=== PATIENT | female | born 1980 | race Caucasian/White ===

== ENCOUNTER 2020-07-08 08:33 | Outpatient (CLI) | payer OTHER, SELFPAY ==
--- NOTE | ~2020-07-08 | MM_ITS ---
EXAMINATION: MM screening rosemary BI w maira HISTORY: Screening mammogram TECHNIQUE: Craniocaudal and mediolateral oblique 3-D tomosynthesis images were obtained and synthetic 2-D images were generated. CAD analysis was submitted and interpreted. COMPARISON: No prior mammogram is available for comparison at this institution. BREAST PARENCHYMAL COMPOSITION: There are scattered areas of fibroglandular density. FINDINGS: Scattered occasional benign calcifications. There is no evidence of suspicious mass, calcif ication, or architectural distortion to suggest malignancy in either breast. There has been no suspic ious interval change. IMPRESSION: 1. No mammographic evidence of malignancy. 2. Recommend routine screening mammography in one year. BI-RADS Category 2: Benign finding(s). Reviewed, dictated and finalized at location A. O/VISUAL MANAGER
== END 2020-07-08 08:34 | disposition home or self-care (01) ==
LOC: ANHIMG 08:36
PROVIDERS: PCP Internal Medicine; Visit Provider Obstetrics & Gynecology
DX: Z12.31 Encounter for screening mammogram for malignant neoplasm of breast (principal)
CPT/HCPCS: 77063; 77067

== ENCOUNTER 2020-11-26 13:42 | Outpatient (CLI) | payer OTHER, SELFPAY ==
--- NOTE | ~2020-11-26 | MM_ITS ---
EXAMINATION: MM diagnostic rosemary BI w maira HISTORY: Right breast pain TECHNIQUE: ML, MLO and craniocaudal 3-D tomosynthesis images of both breasts were performed and synth etic 2-D images were generated. CAD analysis was submitted and interpreted. COMPARISON: 07/08/2020 bilateral digital screening mammogram BREAST PARENCHYMAL COMPOSITION: There are scattered areas of fibroglandular density. FINDINGS: No suspicious mass or architectural distortion, malignant calcification, skin thickening or retraction or significant new or developing density is detected. IMPRESSION: 1. No mammographic evidence of malignancy 2. Routine mammographic screening is recommended BI-RADS Category 1: Negative Reviewed, dictated and finalized at location A.
== END 2020-11-26 13:43 | disposition home or self-care (01) ==
LOC: ANHIMG 13:44
PROVIDERS: PCP Internal Medicine; Visit Provider Obstetrics & Gynecology
DX: N60.19 Diffuse cystic mastopathy of unspecified breast (principal)
CPT/HCPCS: 77062; 77066; G0279

== ENCOUNTER 2022-06-29 08:50 | Outpatient (CLI) | payer OTHER, SELFPAY ==
--- NOTE | ~2022-06-29 | MM_ITS ---
EXAMINATION: MM screening rosemary BI w maira HISTORY: Screening mammogram TECHNIQUE: Craniocaudal and mediolateral oblique 3-D tomosynthesis images were obtained and synthetic 2-D images were generated. CAD analysis was submitted and interpreted. COMPARISON: 11/26/2020 bilateral diagnostic mammogram 07/08/2020 bilateral screening mammogram BREAST PARENCHYMAL COMPOSITION: There are scattered areas of fibroglandular density. FINDINGS: There is no evidence of suspicious mass, calcification, or architectural distortion to sugg est malignancy in either breast. There has been no suspicious interval change. IMPRESSION: 1. No mammographic evidence of malignancy. 2. Recommend routine screening mammography in one year. BI-RADS Category 1: Negative Reviewed, dictated and finalized at location A. ITION ASSEMBLY MACHINE OPERATOR
== END 2022-06-29 08:51 | disposition home or self-care (01) ==
LOC: ANHIMG 08:53
PROVIDERS: PCP Internal Medicine; Visit Provider Internal Medicine
DX: Z12.31 Encounter for screening mammogram for malignant neoplasm of breast (principal)
CPT/HCPCS: 77063; 77067

== ENCOUNTER 2023-06-26 09:02 | Emergency (ER) | payer BC, SELFPAY ==
[2023-06-26 09:22] VITALS: BP 129/83; PULSE 80; RESP 16; TEMP 36.8; O2SAT 99
--- NOTE | 2023-06-26 09:34 | ED.FEMALEGU ---
HPI - Female Genitourinary General Chief complaint: Urogenital-Female Stated complaint: UTI Time Seen by Provider: 06/26/23 09:34 Source: patient Mode of arrival: ambulatory Limitations: no limitations History of Present Illness HPI Narrative: 42-year-old female presents with complaint of urinary frequency, urgency, dysuria for 3 days. Afebrile. Denies abdominal and back pain. Denies nausea vomiting. Not taking any uket-iom-ihaoryr medications to treat symptoms. All systems reviewed and negative except as noted above. Related Data Allergies Allergy/AdvReac Type Severity Reaction Status Date / Time acetaminophen [From Percocet] Allergy Intermediate Itching Verified 06/26/23 09:30 oxycodone [From Percocet] Allergy Intermediate Itching Verified 06/26/23 09:30 Review of Systems Review of Systems: CONSTITUTIONAL: Denies fever, chills, or sweats. EYES: Denies visual changes, redness, or discharge. ENT: Denies rhinorrhea, congestion, sore throat, or otalgia. CARDIOVASCULAR: Denies chest pain, palpitations, or edema. RESPIRATORY: Denies cough or dyspnea. GASTROINTESTINAL: Denies abdominal pain, nausea, vomiting, or diarrhea. GENITOURINARY: Reports dysuria, frequency. Denies hematuria. SKIN: Denies rash or itching. MUSCULOSKELETAL: Denies back pain, joint pain, or myalgia. NEUROLOGIC: Denies headache, numbness, or weakness. PSYCHIATRIC: Denies anxiety or depression. All other systems reviewed are negative, except as documented in HPI. PMFSH Comments At time of signature, agree with nursing past medical, surgical, social and family history. There is no relevant family history pertinent to the presenting complaint. Exam Narrative: GENERAL: This is a well-nourished, well-developed patient, in no apparent distress. HEAD: normocephalic, atraumatic. EYES: PERRL. Sclera clear/white. Vision is grossly intact. EARS: External ears normal NOSE: External nose normal NECK: Neck supple, non-tender without lymphadenopathy, masses or thyromegaly. CARDIOVASCULAR: Regular rate and rhythm without murmurs, gallops, or rubs. RESPIRATORY: Clear to auscultation. Breath sounds equal bilaterally. No wheezes, rales, or rhonchi. SKIN: warm, Dry, intact with no suspicious lesions or rash, good texture and turgor. NEURO: awake, alert, and oriented to person, place and time. There were no obvious focal neurologic abnormalities. EXTREMITIES: No joint tenderness, effusion, or edema noted. Course Course Level of Care: Express Care Visit Vital Signs Vital signs: Vital Signs Temperature 36.8 C 06/26/23 09:22 Pulse Rate 80 06/26/23 09:22 Respiratory Rate 16 06/26/23 09:22 Blood Pressure 129/83 06/26/23 09:22 Pulse Oximetry 99 06/26/23 09:22 Oxygen Delivery Room Air 06/26/23 09:22 Temperature 36.8 C 06/26/23 09:22 Pulse Rate 80 06/26/23 09:22 Respiratory Rate 16 06/26/23 09:22 Blood Pressure 129/83 06/26/23 09:22 Pulse Oximetry 99 06/26/23 09:22 Oxygen Delivery Room Air 06/26/23 09:22 reviewed MDM - Female Genitourinary MDM Narrative Medical decision making narrative: Patient is aware of diagnosis, understands and agrees to treatment plan. Anticipatory guidance given. Patient agrees to follow-up as directed and is aware of reasons to seek care at the emergency department. Portions of this record may have been created with voice recognition software Differential Diagnosis Differential diagnosis: Likely urinary tract infection Lab Data Labs: Urine Glucose Negative Reference Range: Negative Urine Bilirubin Negative Reference Range: Negative Urine Ketone Negative Reference Range: Negative Urine Specific Peculiar 1.030 Referenc
== END 2023-06-26 09:52 | disposition home or self-care (01) ==
PROVIDERS: Emergency Provider Nurse Practitioner Family; PCP Internal Medicine
DX: N39.0 Urinary tract infection, site not specified (principal); B96.20 Unspecified Escherichia coli [E. coli] as the cause of diseases classified elsewhere
CPT/HCPCS: 81003; 87077; 87086; 87186; 99213; G0463

== ENCOUNTER 2024-07-06 13:37 | Emergency (ER) | payer BC, SELFPAY ==
[2024-07-06 13:51] VITALS: BP 114/72; PULSE 99; RESP 16; TEMP 36.7; O2SAT 99
--- NOTE | 2024-07-06 14:16 | ED.GENADULT ---
HPI - General Adult General Chief complaint: Upper Respiratory Infection Stated complaint: work note,fever,cough,diarrhea Time Seen by Provider: 07/06/24 14:12 Source: patient, RN notes reviewed and old records reviewed Mode of arrival: ambulatory Limitations: no limitations History of Present Illness HPI narrative: 43 year old female presents to [facility] care with complaints of 2 day history of nasal congestion and drainage. cough productive of thick yellow mucous, fevers up to 102F, body aches, headaches and fatigue. Patient also reports some stomach cramping with some nausea and episodes of diarrhea. Patient reports that she has been taking Tylenol for her symptoms. MD complaint: sinus congestion,drainage, cough,fevers,headache body aches and diarrhea Onset (ago): day(s) (2) Severity: moderate Treatments prior to arrival: other (Tylenol) Related Data Home Medications ?Medication ?Instructions ?Recorded ?Confirmed ?Last Taken ?Type No Home Medications 07/06/24 07/06/24 Unknown History Allergies Allergy/AdvReac Type Severity Reaction Status Date / Time acetaminophen (From Percocet) Allergy Intermediate Itching Verified 07/06/24 13:46 oxycodone (From Percocet) Allergy Intermediate Itching Verified 07/06/24 13:46 Review of Systems Review of Systems: CONSTITUTIONAL: reports malaise, chills, sweats, or fever. EYES: Denies visual changes, redness, or discharge. ENT: Reports rhinorrhea, congestion, sinus pain, no otalgia and no sore throat. CARDIOVASCULAR: Denies chest pain, palpitations, or edema. RESPIRATORY: Reports cough.? Denies dyspnea. GASTROINTESTINAL: Denies abdominal pain, +nausea, no vomiting, +diarrhea SKIN: Denies rash or itching. MUSCULOSKELETAL:Positive for myalgia. NEUROLOGIC: Positive headache. All systems reviewed & are unremarkable except as noted in HPI and below PMFSH Past Medical History Medical History Urinary tract infection Asthma Surgical History Surgical History History of tonsillectomy Previous section total x8 Social History Social History Smoking status: Current every day smoker Tobacco type: e-cigarettes/vaping Additional smoking assessment comments: former tobacco use now vapes since 2022 Alcohol intake: current Alcohol use details: social Substance use type: does not use Living arrangements: with family Gender identity (if verbalized by the patient): Female Comments At time of signature, agree with nursing past medical, surgical, social and family history. There is no relevant family history pertinent to the presenting complaint Exam Narrative: GENERAL: Ill-appearing, well-nourished, and in no acute distress. HEAD: Normocephalic EYES: PERRLA, conjunctivae clear ENT: Nares clear, turbinates edematous and erythematous, clear discharge. Mucous membranes moist. TM pearly dugan with dull light reflex bilaterally; no tragal tenderness. Oropharynx erythematous without lesions. Tonsils not present and throat without exudate, no drooling, no hoarseness, no trismus, uvula midline.post nasal drainage NECK: Supple. No lymphadenopathy CHEST: Clear to auscultation, breath sounds equal. No wheezing, rhonchi, rales, or stridor. No respiratory distress, speaks in full sentences.productive cough yellowish mucous, SAO2 99% on room air HEART: Regular rate and rhythm. No murmur heard. SKIN: Warm, dry, no rash. NEURO: Alert and oriented x3. PSYCH: Normal mood and affect Course Course Emergency Course: Patient is aware of diagnosis, understands and agrees to treatment plan.? Anticipatory guidance given.? Patient agrees to follow-up as directed and is aware of reasons to seek care at the emergency department. Portions of this record may have been created with voice recognition software Level of Care: Express Care Visit Vital Signs Vital signs: Vital Signs Temperature 36.7 C 07/06/24 13:51 Pulse Rate 99 07/06/24 13:51 Respiratory Rate 16 07/06/24 13:51 Blood Pressure 114/72 07/06/24 13:51 Pulse Oximetry 99 07/06/24 13:51 Oxygen Delivery Room Air 07/06/24 13:51 Temperature 36.7 C 07/06/24 13:51 Pulse Rate 99 07/06/24 13:51 Respiratory Rate 16 07/06/24 13:51 Blood Pressure 114/72 07/06/24 13:51 Pulse Oximetry 99 07/06/24 13:51 Oxygen Delivery Room Air 07/06/24 13:51 Reviewed Medical Decision Making Differential Diagnosis Differential Diagnosis: URI, rhinitis, cough, influenza, COVID, diarrhea, flu like symptoms. Medical Records Medical records reviewed: Yes I reviewed the external patient's medical records. Vital Signs Vital Signs: Vital Signs Temperature 36.7 C 07/06/24 13:51 Pulse Rate 99 07/06/24 13:51 Respiratory Rate 16 07/06/24 13:51 Blood Pressure 114/72 07/06/24 13:51 Pulse Oximetry 99 07/06/24 13:51 Oxygen Delivery Room Air 07/06/24 13:51 Temperature 36.7 C 07/06/24 13:51 Pulse Rate 99 07/06/24 13:51 Respiratory Rate 16 07/06/24 13:51 Blood Pressure 114/72 07/06/24 13:51 Pulse Oximetry 99 07/06/24 13:51 Oxygen Delivery Room Air 07/06/24 13:51 reviewed Lab Data Lab results reviewed: Yes I reviewed the patient's lab results. Lab results narrative: Influenza A negative, Influenza B negative , COVID antigen negative Labs: Lab Results 07/06/24 Range/Units 13:50 POC Influenza A Ag Negative (Negative) POC Influenza B Ag Negative (Negative) POC SARS CoV-2 Ag Negative (Negative) Critical Care Time Critical Care Time Critical Care Time: No Discharge Plan Discharge Clinical Impression: Flu-like symptoms Patient Disposition: Home, Self-Care Condition: Stable Instructions: Influenza (ED), Acute Cough (ED) Additional Instructions: Increase fluids especially juices and water Yswe-qhe-cacnfat cough and cold medicine of your choice for your symptoms Tylenol or ibuprofen for any fever pain Zyrtec Claritin or Laura daily may include plain Sudafed heat to the face 20-30 minutes 4-6 times a day for pain Salt water gargles, throat lozenges or throat sprays as desired Recommend Delsym or Robitussin cough syrup She must be fever free without use of Tylenol or ibuprofen for 24 hours before she can return to work Patient Language: Anguillan Prescriptions: No Action No Home Medications Follow-up/Referrals: Keira,Quentin Villar MD [Primary Care Provider] - Stand Alone Forms: Work/School Release IP Time of Disposition: 14:35 Quality [place] Coma Scale Eyes: Open Verbal: Oriented and Alert Motor: Follows Commands [place] Coma Total Score: 15
[2024-07-06 14:19] LABS: EDCOVIDSCREEN Negative (Negative); EDINFLUASCREEN Negative (Negative); EDINFLUBSCREEN Negative (Negative)
== END 2024-07-06 14:40 | disposition home or self-care (01) ==
PROVIDERS: Emergency Provider Registered Nurse; PCP Internal Medicine
DX: J11.1 Influenza due to unidentified influenza virus with other respiratory manifestations (principal); Z20.822 Contact with and (suspected) exposure to COVID-19; F17.290 Nicotine dependence, other tobacco product, uncomplicated; J45.909 Unspecified asthma, uncomplicated
CPT/HCPCS: 87426; 87804; 99212; G0463

== ENCOUNTER 2024-08-31 09:54 | Emergency (ER) | payer BC, SELFPAY ==
[2024-08-31 10:06] VITALS: BP 117/75; PULSE 78; RESP 18; TEMP 36.9; O2SAT 100
--- NOTE | 2024-08-31 10:38 | ED_ITS ---
HPI - Eye Problem General Chief complaint: Eye Problems Stated complaint: Right Eye Irritation Source: patient Mode of arrival: ambulatory Limitations: no limitations History of Present Illness HPI Narrative: Patient presents to Express Care with complaints of right eye pain. She states that both of her kids have pinkeye at this time. Denies any vision changes. Related Data Allergies Allergy/AdvReac Type Severity Reaction Status Date / Time acetaminophen (From Percocet) Allergy Intermediate Itching Verified 08/31/24 09:58 oxycodone (From Percocet) Allergy Intermediate Itching Verified 08/31/24 09:58 Review of Systems Review of Systems: CONSTITUTIONAL: Denies body aches, fever, chills EYES: Endorses swelling, redness and pain to R eye; No FB sensation, photophobia. Denies visual changes ENT: Denies rhinorrhea, congestion, sore throat, or otalgia. CARDIOVASCULAR: Denies chest pain, palpitations RESPIRATORY: Denies cough or dyspnea. GASTROINTESTINAL: Denies abdominal pain, nausea, vomiting, or diarrhea. SKIN: Denies rash, itching, or wounds. MUSCULOSKELETAL: Denies back pain, joint pain, or myalgia. NEUROLOGIC: Denies headache, numbness, tingling, or weakness. All systems reviewed & are unremarkable except as noted in HPI and below PMFSH Past Medical History Medical History Urinary tract infection Asthma Surgical History Surgical History History of tonsillectomy Previous section total x8 Social History Social History Smoking status: Current every day smoker Tobacco type: e-cigarettes/vaping Additional smoking assessment comments: former tobacco use now vapes since 2022 Alcohol intake: current Alcohol use details: social Substance use type: does not use Living arrangements: with family Gender identity (if verbalized by the patient): Female Comments At time of signature, I have reviewed and agree with nursing past medical, surgical, social and family history unless otherwise noted. Please see nursing chart for further information. There is no relevant family history pertinent to the presenting complaint. Exam Narrative: GENERAL: Well-appearing HEAD: Normocephalic, atraumatic. EYES: ?R conjunctival injection, No eye lid swelling or redness. EOMI. ENT: Mucous membranes pink and moist. ?No rhinorrhea. ?TMs normal bilaterally. ?Throat normal. Uvula midline. CHEST: ?Clear to auscultation. HEART: Regular rate and rhythm. ABDOMEN: Soft, nontender, nondistended SKIN: Warm, dry, no rash. ?Normal skin turgor. NEURO: No focal deficits. Alert and oriented x3 PSYCH: ?Normal affect. Course Course Level of Care: Express Care Visit Vital Signs Vital signs: Vital Signs Temperature 36.9 C 08/31/24 10:06 Pulse Rate 78 08/31/24 10:06 Respiratory Rate 18 08/31/24 10:06 Blood Pressure 117/75 08/31/24 10:06 Pulse Oximetry 100 08/31/24 10:06 Oxygen Delivery Room Air 08/31/24 10:06 Temperature 36.9 C 08/31/24 10:06 Pulse Rate 78 08/31/24 10:06 Respiratory Rate 18 08/31/24 10:06 Blood Pressure 117/75 08/31/24 10:06 Pulse Oximetry 100 08/31/24 10:06 Oxygen Delivery Room Air 08/31/24 10:06 Reviewed MDM - Eye Problem MDM Narrative Medical decision making narrative: Pt well hydrated appearing, in no respiratory distress, hemodynamically stable. Recommend supportive care. The patient is stable at time of discharge the clinical impression was discussed and the patient was given the opportunity to ask questions, which were addressed as completely as possible given the information available at present. Anticipatory guidance and return to care precautions were discussed and the importance of primary care follow-up was stressed and encouraged. The patient voiced understanding of the plan, indications to return, and the need for follow-up. Exam findings show no acute concerns or changes Patient is appropriate for outpatient treatment and follow-up. Differential Diagnosis Differential diagnosis: Likely corneal abrasion and conjunctivitis Medical Records Attestation: I reviewed the patient's medical records. Critical Care Time Critical Care Time Critical Care Time: No Discharge Plan Discharge Clinical Impression: Bacterial conjunctivitis Patient Disposition: Home Condition: Stable Instructions: Antibiotic Form, Conjunctivitis (ED) Additional Instructions: Avoid touching or rubbing your eye. Use over the counter lubricating eye drops as needed for irritation Use a warm or cool washcloth on your eye for comfort Use eyedrops as directed - you are contagious for 24 hours after starting the antibiotic Practice good handwashing and hygiene to prevent spread of infection Do not wear the contact lenses. Use a new pair after the infection is resolved. Use new makeup, lashes etc. You may take Tylenol or ibuprofen for pain Patient Language: Slovenian Prescriptions: New ofloxacin 0.3 % drops See Rx Instructions .ROUTE .COMPLEX Qty: 10 0RF Rx Instructions: 2 Drops in right eye every 2-4 hours while awake for the first two days, THEN 4 times daily for 5 days. Follow-up/Referrals: Keira,Quentin Villar MD [Primary Care Provider] - Stand Alone Forms: Work/School Release IP Time of Disposition: 10:39
== END 2024-08-31 10:50 | disposition home or self-care (01) ==
PROVIDERS: PCP Internal Medicine
DX: H10.9 Unspecified conjunctivitis (principal); F17.290 Nicotine dependence, other tobacco product, uncomplicated; J45.909 Unspecified asthma, uncomplicated
CPT/HCPCS: 99213; G0463

== ENCOUNTER 2024-12-27 09:05 | Emergency (ER) | payer BC, SELFPAY ==
--- NOTE | ~2024-12-27 | XR_ITS ---
EXAMINATION: XR ankle RT min 3V DATE: 12/27/2024 09:39 INDICATION: Lateral/anterior ankle pain. Fell TECHNIQUE: 4 images of the right ankle were obtained. COMPARISON: None. FINDINGS: Mildly displaced avulsion fracture of the distal tip of the lateral malleolus with adjacent soft tissue swelling. Talar dome is unremarkable. There is 9 mm ossific density along the dorsum of the navicular bone seen in the lateral projection. Differential includes osteophyte or tiny avulsion fracture of indeterminate age. Correlate for point tenderness. No significant degenerative change. Bone mineralization is within normal limits. IMPRESSION: 1. Mildly displaced avulsion fracture of the distal tip of the lateral malleolus. 2.There is 9 mm ossific density along the dorsum of the navicular bone seen in the lateral projection. Differential includes osteophyte or tiny avulsion fracture of indeterminate age. Correlate for point tenderness. Reviewed, dictated and finalized at location Q. IMPRESSION: 1. Mildly displaced avulsion fracture of the distal tip of the lateral malleolu s. 2.There is 9 mm ossific density along the dorsum of the navicular bone seen in the lateral projection. Differential includes osteophyte or tiny avulsion fract ure of indeterminate age. Correlate for point tenderness.
--- NOTE | 2024-12-27 09:09 | ED_ITS ---
HPI - Fall General Chief Complaint: Extremity Injury, Lower Stated Complaint: fell on stairs Time Seen by Provider: 12/27/24 09:15 Source: patient Mode of arrival: ambulatory Limitations: no limitations History of Present Illness HPI Narrative: Blanche is a 44-year-old female patient presenting to the clinic today with complaints of falling down the stairs last night injuring her right ankle. She reports ankle pain to the lateral and anterior ankle. Mild swelling noted over the right lateral ankle. Rates the pain currently an 8/10 when walking and 5/10 when resting. Has not taken anything for the pain. Attempted to walk last night after at happen and was not able to bear any weight. Denies hitting her head or any loss of consciousness when she fell. Denies any cervical, thoracic, or lumbar back pain. Related Data Allergies Allergy/AdvReac Type Severity Reaction Status Date / Time acetaminophen (From Percocet) Allergy Intermediate Itching Verified 12/27/24 09:11 oxycodone (From Percocet) Allergy Intermediate Itching Verified 12/27/24 09:11 Review of Systems Review of Systems: Pertinent positives per HPI. Patient denies any fever, chills, rash, headache, visual changes, dizziness, cough, runny nose, sore throat, shortness of breath, chest pain, palpitations, nausea, vomiting, diarrhea, constipation, abdominal pain, or any urinary issues. [facility] Past Medical History Medical History Urinary tract infection Asthma Surgical History Surgical History History of tonsillectomy Previous section total x8 Social History Social History Smoking status: Current every day smoker Tobacco type: e-cigarettes/vaping Additional smoking assessment comments: former tobacco use now vapes since 2022 Alcohol intake: current Alcohol use details: social Substance use type: does not use Living arrangements: with family Gender identity (if verbalized by the patient): Female Comments At the time of my signature, I reviewed and agree with the nursing past medical, surgical, social, and family history. There is no relevant family history pertinent to the patient complaint. Course Course Emergency Course: Portions of this record may have been created with voice recognition software. Level of Care: Express Care Visit Vital Signs Vital signs: Vital Signs Temperature 36.9 C 12/27/24 09:10 Pulse Rate 97 12/27/24 09:10 Respiratory Rate 14 12/27/24 09:10 Blood Pressure 112/83 12/27/24 09:10 Pulse Oximetry 100 12/27/24 09:10 Temperature 36.9 C 12/27/24 09:10 Pulse Rate 97 12/27/24 09:10 Respiratory Rate 14 12/27/24 09:10 Blood Pressure 112/83 12/27/24 09:10 Pulse Oximetry 100 12/27/24 09:10 Vital signs reviewed MDM - Fall MDM Narrative Medical decision making narrative: At the time of visit patient is resting comfortably on the exam table. Patient appears to be nontoxic. Complaints of falling down the stairs last night injuring her right ankle. She reports ankle pain to the lateral and anterior ankle. Mild swelling noted over the right lateral ankle. Rates the pain currently an 8/10 when walking and 5/10 when resting. Has not taken anything for the pain. Attempted to walk last night after at happen and was not able to bear any weight. X-ray of the right ankle was ordered. Diagnostics: X-ray of the right ankle was performed and shows a mildly displaced avulsion fracture of the right lateral malleolus, possible ossification versus avulsion fracture over the navicular bone of unknown age Plan: Patient has a acute avulsion fracture of the right lateral malleolus. Place patient in a short-leg OCL and crutches were given. Ice pack was given. Sensation and circulation within normal limits after application of the splint. Will have patient follow-up with orthopedic provider-Dr. Lewis. Supportive measures were discussed with the patient and they voiced understanding discharge instructions and agrees to treatment plan. Return precautions reviewed Differential Diagnosis Differential diagnosis: Likely other (Ankle fracture, ankle sprain, soft tissue injury, contusion, ligament tear, joint effusion) Imaging Data Radiologist's impression: ITS Impressions Ankle X-Ray 12/27/24 09:41 IMPRESSION: 1. Mildly displaced avulsion fracture of the distal tip of the lateral malleolus. 2.There is 9 mm ossific density along the dorsum of the navicular bone seen in the lateral projection. Differential includes osteophyte or tiny avulsion fracture of indeterminate age. Correlate for point tenderness. Discharge Plan Discharge Clinical Impression: Avulsion fracture of right ankle Qualifiers: Encounter type: initial encounter Fracture type: closed Qualified Code(s): S82.891A - Other fracture of right lower leg, initial encounter for closed fracture Patient Disposition: Home Condition: Stable Instructions: Antibiotic Form, Avulsion Fracture (ED) Additional Instructions: Rest, ice, elevate, and wear short-leg posterior OCL as directed. Tylenol/Motrin for pain as discussed. May use crutches as discussed Follow up with your PCP if symptoms persist more than 1 week. Follow-up with orthopedic provider Dr. Lewis- call office today to schedule an appointment Patient Language: Japanese Follow-up/Referrals: Keira,Quentin Villar MD [Primary Care Provider] Fish Lewis MD [Physician, Orthopedics] - 1 Day Referral Note: Mildly displaced distal tip avulsion fracture of the right lateral malleolus Clinical Impression: Avulsion fracture of right ankle Time of Disposition: 09:52 Quality NIHSS Nursing Documentation ED NIHSS nursing documentation: reviewed/agree
[2024-12-27 09:10] VITALS: BP 112/83; PULSE 97; RESP 14; TEMP 36.9; O2SAT 100
== END 2024-12-27 10:27 | disposition home or self-care (01) ==
PROVIDERS: Emergency Provider Nurse Practitioner Family; PCP Internal Medicine
DX: S82.891A Other fracture of right lower leg, initial encounter for closed fracture (principal); F17.290 Nicotine dependence, other tobacco product, uncomplicated; W10.9XXA Fall (on) (from) unspecified stairs and steps, initial encounter
CPT/HCPCS: 29515; 73610; 99214; G0463